=== PATIENT | female | born 1950 | race Hispanic/Latino ===

== ENCOUNTER 2017-07-18 09:14 | Emergency (ER) | payer OTHER ==
[2017-07-18 09:21] VITALS: BP 155/80; PULSE 83; RESP 18; TEMP 98; O2SAT 94
--- NOTE | 2017-07-18 10:15 | C.PDOC ---
History Of Present Illness 66-year-old female, presents to the emergency department with complaints of right jaw pain, that she developed 2 days ago while she was eating a sandwich. States she felt a crack, and it hurts when she is chewing. Denies fever. Time Seen by Provider: 07/18/17 09:28 Chief Complaint (Nursing): Dental Pain History Per: Patient History/Exam Limitations: no limitations Past Medical History Reviewed: Historical Data, Nursing Documentation, Vital Signs Vital Signs: Last Vital Signs Temp 98 F 07/18/17 09:17 Pulse 83 07/18/17 09:17 Resp 18 07/18/17 09:17 BP 155/80 H 07/18/17 09:17 Pulse Ox 94 L 07/18/17 11:21 - Medical History PMH: HTN Family History: States: No Known Family Hx - Social History Hx Alcohol Use: No Hx Substance Use: No - Immunization History Hx Tetanus Toxoid Vaccination: No Hx Influenza Vaccination: No Hx Pneumococcal Vaccination: No Review Of Systems Constitutional: Negative for: Fever ENT: Positive for: Other (right upper jaw pain) Physical Exam - Physical Exam Appears: Non-toxic, No Acute Distress Skin: Warm, Dry, No Rash Head: Atraumatic, Normacephalic Eye(s): bilateral: Normal Inspection, EOMI Nose: Normal, No Flaring, No Discharge Oral Mucosa: Moist Tongue: No Swelling Lips: Normal Appearing Teeth: No Tender To Palpation, No Loose, Other (Most teeth have crowns) Gingiva: No Swelling, Tender ((+) right mandibular gingival tenderness), No Abscess, Other ((+) tenderness to the rigth mandible externally, no significant swelling noted) Throat: Normal, No Erythema, No Exudate Neck: Normal ROM, Supple Chest: Symmetrical Cardiovascular: Rhythm Regular Respiratory: Normal Breath Sounds, No Accessory Muscle Use Neurological/Psych: Oriented x3, Normal Speech ED Course And Treatment O2 Sat by Pulse Oximetry: 94 (RA) Pulse Ox Interpretation: Normal Progress Note: Mandibular XR. Pt refused pain medication. Patient will be instructed to f/u outpatient with dentist in 1-2 days. Disposition - Disposition Disposition: HOME/ ROUTINE Disposition Time: 10:13 Condition: STABLE Additional Instructions: Follow up with dentist in 1-2 days. Return to ER if symptoms persist or worsen. Prescriptions: Clindamycin [Cleocin] 300 mg PO Q6 #28 cap Ibuprofen [Motrin] 600 mg PO Q6 PRN #20 tab PRN Reason: Pain, Mild (1-3) Instructions: Dental Pain (DC) Forms: [facility] (Thai) - Clinical Impression Clinical Impression: Pain, dental - Scribe Statement The provider has reviewed the documentation as recorded by the Scribe (Rona Sharma) All medical record entries made by the Scribe were at my direction and personally dictated by me. I have reviewed the chart and agree that the record accurately reflects my personal performance of the history, physical exam, medical decision making, and the department course for this patient. I have also personally directed, reviewed, and agree with the discharge instructions and disposition.
--- NOTE | 2017-07-18 10:57 | RAD ---
PROCEDURE: HISTORY: pain COMPARISON: None TECHNIQUE: Five views FINDINGS: No mandibular fracture appreciated. The mandibular condyle appears normally positioned in th temporal fossa. There is extensive mandibular and maxillary dental work present in the integrity of which is indeterminate. No priors are available. Consider dental consultation follow-up IMPRESSION: No mandibular fracture appreciated. Zygomatic arches grossly intact. Integrity of dental work -indeterminate. Clinical follow-up recommended
== END 2017-07-18 10:58 | disposition home or self-care (01) ==
LOC: C.ER 09:14
DX: K08.89 Other specified disorders of teeth and supporting structures (principal)